=== PATIENT | male | born 1985 | race African-American/Black ===

== ENCOUNTER 2016-07-30 03:03 | Emergency (ER) | payer OTHER ==
--- NOTE | 2016-07-30 03:28 | PDOC ---
History of Present Illness - General Chief Complaint: Pain Stated Complaint: DIARRHEA, ABD PAIN Time Seen by Provider: 07/30/16 03:08 History Source: Patient Exam Limitations: No Limitations - History of Present Illness Travel History: No Timing/Duration: reports: intermittent Quality: reports: mild Abdominal Pain Onset Location: reports: RUQ Pain Radiation: reports: no radiation Past History - Travel Traveled outside of the country in the last 30 days: No Close contact w/someone who was outside of country & ill: No - Past Medical History Allergies/Adverse Reactions: Allergies Allergy/AdvReac Type Severity Reaction Status Date / Time No Known Allergies Allergy Verified 07/30/16 03:24 Home Medications: Ambulatory Orders Sitagliptin Phos/Metformin HCl [Janumet 50-500 mg Tablet] 1 each PO DAILY Diabetes: Yes - Immunization History Immunization Up to Date: Yes - Psycho/Social/Smoking Cessation Hx Anxiety: No Suicidal Ideation: No Smoking History: Never smoked Hx Alcohol Use: Yes (OCCASIONALLY) Drug/Substance Use Hx: No Abd/GI Specific PMHX - Complaint Specific PMHX Diverticulitis: No Gall Bladder Disease: Yes Review of Systems - Review of Systems Able to Perform ROS?: Yes Comments:: 07/30/16 03:26 CONSTITUTIONAL: Absent: fever, chills, diaphoresis, generalized weakness, malaise, loss of appetite HEENT: Absent: rhinorrhea, nasal congestion, throat pain, throat swelling, difficulty swallowing, mouth swelling, ear pain, eye pain, visual Changes CARDIOVASCULAR: Absent: chest pain, loss of consciousness, palpitations, irregular heart rate, peripheral edema RESPIRATORY: Absent: cough, shortness of breath, dyspnea with exertion, orthopnea, wheezing, stridor, hemoptysis GASTROINTESTINAL: RUQ pain Absent: abdominal distension, nausea, vomiting, diarrhea, constipation, melena, hematochezia GENITOURINARY: Absent: dysuria, frequency, urgency, hesitancy, hematuria, flank pain, genital pain MUSCULOSKELETAL: Absent: myalgia, arthralgia, joint swelling SKIN: Absent: rash, itching, pallor HEMATOLOGIC/IMMUNOLOGIC: Absent: easy bleeding, easy bruising, lymphadenopathy, frequent infections ENDOCRINE: Absent: unexplained weight gain, unexplained weight loss, heat intolerance, cold intolerance NEUROLOGIC: Absent: headache, focal weakness or paresthesias, dizziness, unsteady gait, seizure, mental status changes, bladder or bowel incontinence PSYCHIATRIC: Absent: anxiety, depression, suicidal or homicidal ideation, hallucinations. Is the patient limited Indonesian proficient: No *Physical Exam - Physical Exam Comments: 07/30/16 03:27 GENERAL: Well developed, well nourished. Awake and alert. No acute distress. HEENT: Normocephalic, atraumatic. PERRLA, EOMI. No conjunctival pallor. Sclera are non- icteric. Moist mucous membranes. Oropharynx is clear. NECK: Supple. Full ROM. No JVD. Carotid pulses 2+ and symmetric, without bruits. No thyromegaly. No lymphadenopathy. CARDIOVASCULAR: Regular rate and rhythm. No murmurs, rubs, or gallops. Distal pulses are 2+ and symmetric. PULMONARY: No evidence of respiratory distress. Lungs clear to auscultation bilaterally. No wheezing, rales or rhonchi. ABDOMINAL: Neg murphys Soft. Non-tender. Non-distended. No rebound or guarding. No organomegaly. Normoactive bowel sounds. MUSCULOSKELETAL Normal range of motion at all joints. No bony deformities or tenderness. No CVA tenderness. EXTREMITIES: No cyanosis. No clubbing. No edema. No calf tenderness. SKIN: Warm and dry. Normal capillary refill. No rashes. No jaundice. NEUROLOGICAL: Alert, awake, appropriate. Cranial nerves 2-12 intact. No deficits to light touch and temperature in face, upper extremities and lower extremities. No motor deficits in the in face, upper extremities and lower extremities. Normoreflexic in the upper and lower extremities. Normal speech. Toes are down- going bilaterally. Gait is normal without ataxia. PSYCHIATRIC: Cooperative. Good eye contact. Appropriate mood and affect. ED Treatment Course - LABORATORY CBC & Chemistry Diagram: 07/30/16 03:34 07/30/16 03:34 Progress Note - Progress Note Progress Note: 31-year-old male presents to the emergency department complaining of diarrhea 2 days. Patient is also complaining of 2/10 dull nonradiating intermittent right epigastric abdominal pains. There are no alleviating or exacerbating factors. Patient denies nausea/vomiting, fever/chills, constipation, chest pain , shortness of breath, flank pains, urinary symptoms: Frequency/urgency/ hesitancy, hematuria. Pt states he feels better. Will F/U with PMD and GI and Surg *DC/Admit/Observation/Transfer Diagnosis at time of Disposition: Diarrhea Qualifiers: Diarrhea type: unspecified type Qualified Code(s): R19.7 - Diarrhea, unspecified Abdominal pain Qualifiers: Abdominal location: epigastric Qualified Code(s): R10.13 - Epigastric pain - Discharge Dispostion Disposition: HOME Condition at time of disposition: Stable Admit: No - Referrals Referrals: Anton Martinez MD [Staff Physician] - Sean Lake MD [Staff Physician] - - Patient Instructions Printed Discharge Instructions: Diarrhea, DI for Abdominal Pain-Adult Additional Instructions: REst Bread Rice Apple [place] Increase fluids Follow up with the Self Storage Manager listed on your discharge Follow up with the surgeon listed on your discharge Return back to the ER for severe/persistent/worsening symptoms
[2016-07-30] MEDS ORDERED: SODIUM CHLORIDE 1,000 ML IV SCH (03:30)
--- NOTE | 2016-07-30 03:48 | PDOC ---
[id number] 100 07/30/16 03:24 07/30/16 03:24 07/30/16 03:24 07/30/16 03:24 07/30/16 03:24 ED Treatment Course - LABORATORY CBC & Chemistry Diagram: 07/30/16 03:34 07/30/16 03:34 Medical Decision Making - Medical Decision Making 07/30/16 03:48 agree with care from TEENA Sherman *DC/Admit/Observation/Transfer Diagnosis at time of Disposition: Diarrhea, Abdominal pain - Discharge Dispostion Disposition: HOME Condition at time of disposition: Stable - Referrals Referrals: Anton Martinez MD [Staff Physician] - Sean Lake MD [Staff Physician] - - Patient Instructions Printed Discharge Instructions: Diarrhea, DI for Abdominal Pain-Adult Additional Instructions: REst Bread Rice Apple [place] Increase fluids Follow up with the Transplant Immunologist listed on your discharge Follow up with the surgeon listed on your discharge Return back to the ER for severe/persistent/worsening symptoms
[2016-07-30 04:09] LABS: BASOPHIL 0.6 % (0-2.0); EOSINOPHIL 1.8 % (0-4.5); MCH 30.3 pg (25.7-33.7); MCHC 33.9 g/dl (32.0-35.9); MEAN CELL VOLUME 89.3 fl (80-96); MEAN PLT VOLUME 10.2 fl (7.5-11.1); NEUTROPHILS 65.6 % (42.8-82.8); PLATELET COUNT 191 K/MM3 (134-434); RDW 12.6 % (11.9-15.9); WHITE BLOOD COUNT 6.4 K/mm3 (4.0-10.0)
[2016-07-30 04:15] VITALS: BP 132/73; PULSE 92; TEMP 98.1; BMI 35.6
[2016-07-30 04:38] LABS: ALBUMIN 4.2 g/dl (3.4-5.0); ALK PHOS 73 U/L (45-117); AMYLASE 105 U/L (25-115); ANION GAP 7 (8-16); BILIRUBIN,TOTAL 1.1 mg/dL (0.2-1.0); CALCIUM 9.1 mg/dL (8.5-10.1); CO2 26 mmol/L (21-32); CREATININE 1.1 mg/dL (0.7-1.3); GLUCOSE,RANDOM 69 mg/dL (74-106); SGOT/AST 45 U/L (15-37); SGPT/ALT 55 U/L (12-78); TOT PROT 7.6 g/dl (6.4-8.2)
== END 2016-07-30 05:05 | disposition home or self-care (01) ==
LOC: JER 03:03
PROC: 3E0337Z Introduction of Electrolytic and Water Balance Substance into Peripheral Vein, Percutaneous Approach (ICD-10-PCS; principal; 2016-07-30)
DX: R19.7 Diarrhea, unspecified (principal)
CPT/HCPCS: 36415; 80053; 82150; 83690; 85025; 99283-25

== ENCOUNTER 2017-09-13 20:39 | Emergency (ER) | payer SELFPAY ==
[2017-09-13 21:12] VITALS: BP 143/83; PULSE 99; TEMP 98.1; BMI 24.4
[2017-09-13 23:59] LABS: BASO % 0.9 % (0-2.0); HEMATOCRIT 36.2 % (35.4-49); HEMOGLOBIN 12.8 GM/dL (11.7-16.9); LYMPH % 19.3 % (8-40); MCH 31.3 pg (25.7-33.7); MCHC 35.4 g/dl (32.0-35.9); MEAN CELL VOLUME 88.3 fl (80-96); MEAN PLT VOLUME 10.6 fl (7.5-11.1); MONO % 8.4 % (3.8-10.2); NEUT % 70.4 % (42.8-82.8); PLATELET COUNT 187 K/MM3 (134-434); RDW 12.7 % (11.9-15.9); WHITE BLOOD COUNT 8.9 K/mm3 (4.0-10.0)
[2017-09-14 00:03] LABS: URINE APPEARANCE CLOUDY; URINE BILIRUBIN NEGATIVE (<2.0 mg/dL); URINE BLOOD 3+ (NEGATIVE); URINE COLOR YELLOW; URINE GLUCOSE (UA) 3+ (NEGATIVE); URINE KETONE NEGATIVE (NEGATIVE); URINE NITRITE NEGATIVE (NEGATIVE); URINE UROBILINOGEN 4.0 E.U/dl mg/dL (0.2-1.0)
[2017-09-14 00:04] LABS: URINE LEUK ESTERASE 3+ (NEGATIVE); URINE PROTEIN 2+ (NEGATIVE)
[2017-09-14 00:29] LABS: URINE BACTERIA MODERATE /hpf (NONE SEEN)
[2017-09-14 00:35] LABS: ALBUMIN 3.9 g/dl (3.4-5.0); ALK PHOS 91 U/L (45-117); ANION GAP 9 (8-16); BILIRUBIN,TOTAL 1.5 mg/dL (0.2-1.0); BLOOD UREA NITROGEN 22 mg/dL (7-18); CALCIUM 9.1 mg/dL (8.5-10.1); CHLORIDE 103 mmol/L (98-107); CO2 27 mmol/L (21-32); CREATININE 1.2 mg/dL (0.7-1.3); GLUCOSE,RANDOM 293 mg/dL (74-106); SGOT/AST 24 U/L (15-37); SGPT/ALT 29 U/L (12-78); SODIUM 139 mmol/L (136-145); TOT PROT 7.4 g/dl (6.4-8.2)
--- NOTE | 2017-09-14 00:35 | PDOC ---
History of Present Illness - General History Source: Patient Exam Limitations: No Limitations - History of Present Illness Initial Comments: 09/14/17 00:48 The patient is a 32 year old female with significant PMH of diabetes, noncompliant with metformin for the past year who presents to the emergency department complaining of burning with urination for the past two weeks. The patient reports he has been controlling his diet and exercising when he can. The patient does not currently have a PCP since he lost his job recently and did not have insurance. Patient notes metformin has bothered his stomach in the past. The patient denies fever, chills, nausea, vomit, diarrhea and constipation. Denies dysuria, frequency, urgency and hematuria. Allergies: NKA Past surgical history: None reported. Social history: No reported alcohol, drug, or cigarette use. <Gaby Banerjee - Last Filed: 09/14/17 01:31> <Leelee Murdokc - Last Filed: 09/14/17 01:54> - General Chief Complaint: Urinary Problem Stated Complaint: URINARY PROBLEM Time Seen by Provider: 09/13/17 22:51 Past History <Gaby Banerjee - Last Filed: 09/14/17 01:31> - Past Medical History COPD: No Diabetes: Yes (NIDDM) - Immunization History Immunization Up to Date: Yes - Suicide/Smoking/Psychosocial Hx Smoking History: Never smoked Have you smoked in the past 12 months: No Number of Cigarettes Smoked Daily: 0 Information on smoking cessation initiated: No Hx Alcohol Use: No Drug/Substance Use Hx: No Substance Use Type: None <Leelee Murdock - Last Filed: 09/14/17 01:54> - Past Medical History Allergies/Adverse Reactions: Allergies Allergy/AdvReac Type Severity Reaction Status Date / Time No Known Allergies Allergy Verified 07/30/16 03:24 Home Medications: Ambulatory Orders Sitagliptin Phos/Metformin HCl [Janumet 50-500 mg Tablet] 1 each PO DAILY Sulfamethoxazole/Trimethoprim [Bactrim Ds -] 1 tab PO BID #20 tablet 09/14/17 Abd/GI Specific PMHX - Complaint Specific PMHX Diverticulitis: No Gall Bladder Disease: Yes <Leelee Murdock - Last Filed: 09/14/17 01:54> Review of Systems - Review of Systems Able to Perform ROS?: Yes Comments:: 09/14/17 00:49 A complete review of 10 out of 10 review of systems is taken and is negative apart from what is previously mentioned below and in the HPI. <Gaby Banerjee - Last Filed: 09/14/17 01:31> *Physical Exam - Vital Signs Last Vital Signs Temp Pulse Resp BP Pulse Ox 98.1 F 99 H 20 143/83 99 09/13/17 21:04 09/13/17 21:04 09/13/17 21:04 09/13/17 21:04 09/13/17 21:04 - Physical Exam Comments: 09/14/17 00:51 General Appearance: No acute distress, well nourished, well developed Head: Atraumatic Cardiac: Regular rate and rhythm, no murmurs, no rubs, no gallops Lungs: Clear to auscultation bilateral, good air movement bilaterally Abdomen: Soft, nondistended, normal bowel sounds, nontender to palpation Extremities: Full range of motion to all extremities, no cyanosis, clubbing, or edema Skin: Warm and dry, no rashes or lesions, no rash, no petechiae Neuro: AOX3; Cranial Nerves 2-12 grossly intact, Strength intact to all extremities, Sensation intact to all extremities. Psych: Normal mood, normal affect <Gaby Banerjee - Last Filed: 09/14/17 01:31> - Vital Signs Last Vital Signs Temp Pulse Resp BP Pulse Ox 98.1 F 99 H 20 143/83 99 09/13/17 21:04 09/13/17 21:04 09/13/17 21:04 09/13/17 21:04 09/13/17 21:04 <Leelee Murdock - Last Filed: 09/14/17 01:54> ED Treatment Course - LABORATORY CBC & Chemistry Diagram: 09/13/17 23:29 09/13/17 23:29 - ADDITIONAL ORDERS Additional order review: Laboratory Results 09/13/17 09/13/17 23:29 23:29 Sodium 139 Potassium 4.0 Chloride 103 Carbon Dioxide 27 Anion Gap 9 BUN 22 H Creatinine 1.2 Creat Clearance w eGFR > 60 Random Glucose 293 H D Calcium 9.1 Total Bilirubin 1.5 H D AST 24 D ALT 29 D Alkaline Phosphatase 91 D Total Protein 7.4 Albumin 3.9 Urine Color Yellow Urine Appearance Cloudy Urine pH 6.0 Ur Specific Elizabeth 1.014 Urine Protein 2+ H Urine Glucose (UA) 3+ H Urine Ketones Negative Urine Blood 3+ H Urine Nitrite Negative Urine Bilirubin Negative Urine Urobilinogen 4.0 e.u/dl Ur Leukocyte Esterase 3+ H Urine WBC (Auto) 1638 Urine RBC (Auto) 138 Urine Bacteria Moderate 09/13/17 23:29 RBC 4.10 MCV 88.3 MCHC 35.4 RDW 12.7 MPV 10.6 Neutrophils % 70.4 Lymphocytes % 19.3 Monocytes % 8.4 Eosinophils % 1.0 Basophils % 0.9 <Gaby Banerjee - Last Filed: 09/14/17 01:31> - LABORATORY CBC & Chemistry Diagram: 09/13/17 23:29 09/13/17 23:29 - ADDITIONAL ORDERS Additional order review: Laboratory Results 09/13/17 23:29 Urine Color Yellow Urine Appearance Cloudy Urine pH 6.0 Ur Specific Elizabeth 1.014 Urine Protein 2+ H Urine Glucose (UA) 3+ H Urine Ketones Negative Urine Blood 3+ H Urine Nitrite Negative Urine Bilirubin Negative Urine Urobilinogen 4.0 e.u/dl Ur Leukocyte Esterase 3+ H Urine WBC (Auto) 1638 Urine RBC (Auto) 138 Urine Bacteria Moderate 09/13/17 23:29 RBC 4.10 MCV 88.3 MCHC 35.4 RDW 12.7 MPV 10.6 Neutrophils % 70.4 Lymphocytes % 19.3 Monocytes % 8.4 Eosinophils % 1.0 Basophils % 0.9 <Leelee Murdock - Last Filed: 09/14/17 01:54> Medical Decision Making - Medical Decision Making 09/14/17 01:51 32-year-old male presents with complaint of dysuria. Past medical history significant for NIDDM, and he states that he no longer has health insurance and so therefore he has not been taking any medication. Family history diabetes. Grandmother. Past surgical history none. Allergies none. 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 Soft abdominal exam. No rebound, no guarding. He has no fever or chills or nausea or vomiting. Glucose came back 293 UA positive for urinary tract infection and he was started on antibiotics. I spoke to him about taking history. You have a. He said that the metformin bothers his stomach and he was started with a medication that he injected but not necessarily insolent. He has not taken anything for his diabetes in the past year due to his lack of insurance. I referred him to to both the [address] [place] [address] medical clinic and also to the internal medicine clinic run by Dr. Benoit <Leelee Murdock - Last Filed: 09/14/17 01:54> *DC/Admit/Observation/Transfer - Attestations Scribe Attestion: 09/14/17 00:51 Documentation prepared by Gaby Banerjee, acting as certified medical biller for Leelee Murdock MD. <Gaby Banerjee - Last Filed: 09/14/17 01:31> <Leelee Murdock - Last Filed: 09/14/17 01:54> Diagnosis at time of Disposition: Hyperglycemia UTI (urinary tract infection) Qualifiers: Urinary tract infection type: site unspecified Hematuria presence: without hematuria Qualified Code(s): N39.0 - Urinary tract infection, site not specified - Discharge Dispostion Disposition: HOME Condition at time of disposition: Stable - Prescriptions Prescriptions: Sulfamethoxazole/Trimethoprim [Bactrim Ds -] 1 tab PO BID #20 tablet - Referrals Referrals: Danie Benoit MD [Staff Physician] - - Patient Instructions Printed Discharge Instructions: DI for Urinary Tract Infection (UTI), DI for Hyperglycemia -- Adult Additional Instructions: please bean picker your prescription at your pharmacy The medical clinic at [address] [place] [address] is [phone] Also I have given you the number to our new medical clinic run by Dr Benoit
[2017-09-14] MEDS ORDERED: metFORMIN HCL 500 MG TABLET (FP) PO ONE (01:03)
[2017-09-14] MEDS ORDERED: metFORMIN HCL 500 MG TABLET (FP) ONE (01:10)
== END 2017-09-14 01:26 | disposition home or self-care (01) ==
LOC: JER 20:39
DX: E11.65 Type 2 diabetes mellitus with hyperglycemia (principal); N39.0 Urinary tract infection, site not specified; Z79.84 Long term (current) use of oral hypoglycemic drugs; Z91.14 Patient's other noncompliance with medication regimen
CPT/HCPCS: 36415; 80053; 81003; 81015; 85025; 87086; 87186; 99281-25